=== PATIENT | female | born 1990 | race Caucasian/White ===

== ENCOUNTER 2020-07-05 00:56 | Outpatient (CLI) | payer BC ==
[~2020-07-05] VITALS: Ht 160 cm; Wt 110.4 kg
[2020-07-05 01:15] VITALS: BP 140/85
[2020-07-05] MEDS ORDERED: PRENTAB9 PO (01:20)
[2020-07-05 02:18] VITALS: BP 137/72
--- NOTE | 2020-07-05 02:33 | IPNPDOC ---
Obstetrical Progress Note Date of Service Jul 05, 2020 Subjective 29yo G1 at 20+0 weeks EGA complains of vaginal dampness, and worried about PPROM. No uterine contractions. No vaginal bleeding. No persistent leakage of fluid. +FM. PMH/SH reviewed, no changes. VSS/af REPEAT BP 137/72 Abd: soft,nt,nd Ext: no c/c/e SSE: Cervix visually closed, no pooling/VB/LOF. Neg nitrazine / ferning. SVE: Closed, long, high US,candelaria: cephalic. MVP = 5-6cm. Multiple fluid pockets. A/P: 29yo G1 at 20+0 weeks. No e/o PPROM or advanced dilation. Reassuring maternal and status. -Routine second TM precautions reviewed. Tanesha Morrison DO Objective Vital Signs Date Time Temp Pulse Resp B/P (MAP) Pulse Ox O2 Delivery O2 Flow Rate FiO2 07/05/20 01:15 98.2 106 18 140/85 (103) Assessment Heart Rate (FHR): 155 Tocometer Contractions: No STEPH MORRISON DO Jul 05, 2020 02:33
== END 2020-07-05 02:29 | disposition home or self-care (01) ==
LOC: M LDO 00:56
PROVIDERS: ATTEND Obstetrics & Gynecology
DX: O47.9 False labor, unspecified (principal); Z3A.20 20 weeks gestation of pregnancy
CPT/HCPCS: G0378; G0463

== ENCOUNTER → 2020-08-10 | Outpatient (REF) | payer BC ==
[~2020-08-10] MED LIST: PRENTAB9 PO
== END ==
LOC: M PLALAB 07:48
PROVIDERS: ATTEND Obstetrics & Gynecology
DX: Z34.02 Encounter for supervision of normal first pregnancy, second trimester (principal)

== ENCOUNTER → 2020-08-25 | Outpatient (REF) | payer BC ==
[2020-08-25 13:52] LABS: HEMATOCRIT 34.8 % (36.0-47.0); HEMOGLOBIN 11.3 g/dl (12.0-15.5); MEAN CORPUSCULAR HEMOGLOBIN 29.8 pg (27.0-33.0); MEAN CORPUSCULAR HGB CONC 32.5 g/dl (32.0-36.5); MEAN CORPUSCULAR VOLUME 91.8 fl (80.0-96.0); PLATELET COUNT, AUTOMATED 240 10^3/uL (150-450); RED BLOOD COUNT 3.79 10^6/uL (4.00-5.40); WHITE BLOOD COUNT 9.3 10^3/uL (4.0-10.0)
== END ==
LOC: M PLALAB 10:32
PROVIDERS: ATTEND Obstetrics & Gynecology
DX: Z34.02 Encounter for supervision of normal first pregnancy, second trimester (principal)
CPT/HCPCS: 36415; 85027; 86850; 86900; 86901; J2790

== ENCOUNTER → 2020-10-26 | Outpatient (REF) | payer BC ==
[~2020-10-26] MED LIST changes: +ACET-907 PO
[2020-10-26 14:32] LABS: HEMOGLOBIN 12.1 g/dl (12.0-15.5); MEAN CORPUSCULAR HEMOGLOBIN 29.3 pg (27.0-33.0); MEAN CORPUSCULAR HGB CONC 32.7 g/dl (32.0-36.5); MEAN CORPUSCULAR VOLUME 89.6 fl (80.0-96.0); PLATELET COUNT, AUTOMATED 219 10^3/uL (150-450); RED BLOOD COUNT 4.13 10^6/uL (4.00-5.40); WHITE BLOOD COUNT 11.5 10^3/uL (4.0-10.0)
[2020-10-26 14:56] LABS: ALT/SGPT 18 U/L (12-78); BILIRUBIN,TOTAL 0.2 MG/DL (0.2-1.0); GLOMERULAR FILTRATION RATE > 60.0 (>60); LDH LACTATE DEHYDROGENASE 163 U/L (84-246); TOTAL PROTEIN,RANDOM URINE 19.9 MG/DL (0.0-12.0)
== END ==
LOC: M PLALAB 09:33
PROVIDERS: ATTEND Advanced Practice Midwife
DX: O13.9 Gestational [pregnancy-induced] hypertension without significant proteinuria, unspecified trimester (principal)

== ENCOUNTER 2020-11-01 07:54 | Inpatient (IN) | payer BC ==
[2020-11-01] VITALS (13 sets, daily range): BP systolic 119–149; BP diastolic 63–93
[~2020-11-01] VITALS: Ht 160 cm; Wt 120.8 kg
[~2020-11-01 07:54] MED LIST changes: -ACET-907 PO
[2020-11-01] MEDS ORDERED: ACET-907 PO (08:21)
[2020-11-01] MEDS ORDERED: LACTATED RINGER'S 1000 ML IV STA (08:46)
[2020-11-01] MEDS ORDERED: PENICILLIN G POTASSIUM IV 5 MU in D5W MINI-BAG PLUS 100 ML IV STA (08:46)
[2020-11-01] MEDS ORDERED: CARBOPROST TROMETHAMINE 250 MCG/ML AMP IM PRN (08:50)
[2020-11-01] MEDS ORDERED: TRANEXAMIC ACID INJection 1,000 MG in NS 100 ML IV PRN (08:50)
[2020-11-01] MEDS ORDERED: OXYTOCIN INJ 10 UNITS/ML VIAL (J2590) IM PRN (08:50)
[2020-11-01] MEDS ORDERED: METHYLERGONOVINE MALEATE 0.2 MG/ML VIAL (J2210) IM PRN (08:50)
[2020-11-01] MEDS ORDERED: LIDOCAINE 1% MDV 20ML VIAL INFIL PRN (08:50)
[2020-11-01] MEDS ORDERED: OXYTOCIN DRIP 30 UNITS in IV 1 EA IV PRN ×6 (08:50)
[2020-11-01] MEDS ORDERED: OXYTOCIN INJ 10 UNITS/ML VIAL (J2590) IV PRN (08:50)
[2020-11-01 09:28] LABS: HEMATOCRIT 33.9 % (36.0-47.0); HEMOGLOBIN 11.3 g/dl (12.0-15.5); MEAN CORPUSCULAR HGB CONC 33.3 g/dl (32.0-36.5); MEAN CORPUSCULAR VOLUME 89.9 fl (80.0-96.0); PLATELET COUNT, AUTOMATED 210 10^3/uL (150-450); RED BLOOD COUNT 3.77 10^6/uL (4.00-5.40)
[2020-11-01] MEDS: miSOPROStol 50MCG 1/2 TABLET SL SCH ×3 (09:41→19:08)
[2020-11-01 10:08] LABS: ALT/SGPT 15 U/L (12-78); BILIRUBIN,TOTAL 0.1 MG/DL (0.2-1.0); CREATININE FOR GFR 0.62 MG/DL (0.55-1.30); GLOMERULAR FILTRATION RATE > 60.0 (>60); LDH LACTATE DEHYDROGENASE 185 U/L (84-246); URIC ACID 7.1 MG/DL (2.6-6.0)
[2020-11-01 10:19] LABS: TOTAL PROTEIN,RANDOM URINE 28.2 MG/DL (0.0-12.0)
[2020-11-01] MEDS: PENICILLIN G POTASSIUM IV 2.5 MU in IV 1 EA IV SCH ×3 (14:15→22:18)
[2020-11-01] MEDS: LR 1,000 ML IV SCH (19:58)
[2020-11-01] MEDS ORDERED: ACETAMINOPHEN TAB 650MG DOSE (2X325MG) PO PRN (23:30)
[2020-11-02] VITALS (33 sets, daily range): BP systolic 123–178; BP diastolic 57–120
[2020-11-02] MEDS: miSOPROStol 50MCG 1/2 TABLET SL SCH (00:01)
[2020-11-02] MEDS: PENICILLIN G POTASSIUM IV 2.5 MU in IV 1 EA IV SCH ×6 (02:00→22:00)
[2020-11-02] MEDS: LR 1,000 ML IV SCH ×3 (02:58→21:11)
[2020-11-02 06:37] LABS: HEMATOCRIT 32.9 % (36.0-47.0); HEMOGLOBIN 10.8 g/dl (12.0-15.5); MEAN CORPUSCULAR HEMOGLOBIN 29.7 pg (27.0-33.0); MEAN CORPUSCULAR HGB CONC 32.8 g/dl (32.0-36.5); MEAN CORPUSCULAR VOLUME 90.4 fl (80.0-96.0); PLATELET COUNT, AUTOMATED 193 10^3/uL (150-450); RED BLOOD COUNT 3.64 10^6/uL (4.00-5.40); WHITE BLOOD COUNT 10.4 10^3/uL (4.0-10.0)
[2020-11-02 07:02] LABS: ALT/SGPT 13 U/L (12-78); BILIRUBIN,TOTAL 0.5 MG/DL (0.2-1.0); GLOMERULAR FILTRATION RATE > 60.0 (>60); LDH LACTATE DEHYDROGENASE 149 U/L (84-246); URIC ACID 6.6 MG/DL (2.6-6.0)
--- NOTE | 2020-11-02 08:00 | HPE ---
HISTORY AND PHYSICAL DATE OF ADMISSION: 11/01/2020 HISTORY OF PRESENT ILLNESS: Mary Grace is a 30-year-old female 1 para 0 with an EDC of 11/22/2020, EGA 37 weeks gestation who is being admitted with a diagnosis of preeclampsia for an induction. Patient is a patient of [facility]. She has been receiving care and towards the last third trimester developed gestational hypertension with what appeared to be superimposed preeclampsia. Upon admission, no headache, no blurred vision. No upper quadrant pain. No shortness of breath. Her blood pressure while in Labor and Delivery was well-controlled. Her record was reviewed and unremarkable. labs: Blood type is O negative. Her rubella status is immune. Hepatitis is negative. HIV is negative. GC chlamydia negative. One hour sugar testing was within normal limits. Her GBS is negative. PAST MEDICAL HISTORY: Denies. PAST SURGICAL HISTORY: Denies. SOCIAL HISTORY: She denies any alcohol, drugs or cigarette smoking. REVIEW OF SYSTEMS: Unremarkable. MEDICATIONS: vitamins. ALLERGIES: Reglan. PHYSICAL EXAMINATION: Mildly obese female in no acute distress. Abdomen is soft, nontender, nondistended. Extremities: Without cyanosis, clubbing or edema. Vaginal exam: Fingertip __ cm, -3 station, was done earlier. Tracing reviewed. Category 1 tracing. LABORATORY DATA: Reviewed. Uric acid is 7.1. AST 17, ALT 15. LDH 185. Spot protein and creatinine ratio 0.15, platelets are within normal limits at 210,000. ASSESSMENT: 1. Intrauterine at 37 weeks gestation. 2. Gestational hypertension with superimposed preeclampsia, being admitted for an induction. PLAN: Admit patient to Labor and Delivery. The induction process was discussed earlier with the patient by Dr. Morrison, Cytote induction started. Will place her on the monitor, anticipate delivery. cc: [facility]
[2020-11-02] MEDS ORDERED: OXYTOCIN DRIP 30 UNITS in IV 1 EA IV SCH (09:15)
[2020-11-02] MEDS ORDERED: LR 1,000 ML IV SCH (09:15)
--- NOTE | 2020-11-02 09:17 | IPNPDOC ---
Obstetrical Progress Note Date of Service November 02, 2020 Subjective Reports she is comfortable. Objective Vital Signs Date Time Temp Pulse Resp B/P (MAP) Pulse Ox O2 Delivery O2 Flow Rate FiO2 11/02/20 05:12 98.3 20 11/02/20 03:01 84 138/70 (92) Assessment Heart Rate (FHR): 130 Variability: Moderate Accelerations: Positive Decelerations: None Heart Rate Tracing: Category I Tocometer Contractions: Yes Frequency: irregular Sterile Vaginal Examination Dilation: 1cm Effacement (%): 90% Station: -2 Cervical Consistency: Soft Cervical Position: Anterior Postion/Presentation: Cephalic presentation Assessment and Plan Age: 30 : 1 Term: 0 Pre-term: 0 Abortions: 0 Livin EGA at Admission: 37 Status: Reassuring Group B Streptococcus: Positive Anticipate: Vaginal Delivery Additional Comments Cancino bulb inserted with 60 cc of NS. Patient tolerated well. IV Pitocin to be started per order. IRMA APARICIO CNM November 02, 2020 09:17
[2020-11-02] MEDS ORDERED: FENTANYL 2MCG/ML ROPIVACAINE 0.2% IN 0.9% NACL 100ML IVBAG As Ordered ONE (16:54)
[2020-11-02] MEDS ORDERED: EPIDURAL COMMENT XX SCH (17:25)
[2020-11-02] MEDS ORDERED: ONDANSETRON 4MG/2ML VIAL IV PRN (17:25)
[2020-11-02] MEDS ORDERED: FENTANYL/ROPIVACAINE/NACL BAG 100 ML EPIDURAL SCH (17:25)
[2020-11-02] MEDS ORDERED: ePHEDrine SULFATE 25 MG/5 ML(5MG/ML) SYRINGE IV PRN (17:25)
[2020-11-02] MEDS ORDERED: REFRIGERATOR IV KEYS XX PRN (17:25)
[2020-11-02] MEDS ORDERED: NALOXONE INJ 0.4MG/1ML VIAL (J2310 PER 1MG) IV PRN (17:25)
[2020-11-02] MEDS ORDERED: diphenhydrAMINE 50MG/ML VIAL (J1200) IV PRN (17:25)
[2020-11-02] MEDS ORDERED: EPIDURAL/PCA KEYS XX PRN (17:25)
[2020-11-02] MEDS ORDERED: LACTATED RINGER'S 1000 ML IV PRN (17:25)
--- NOTE | 2020-11-02 17:50 | IPNPDOC ---
Obstetrical Progress Note Date of Service November 02, 2020 Subjective Patient reports she is getting more comfortable with her epidural. She reports spontaneous rupture right before her epidural to clear fluid. Objective Vital Signs Date Time Temp Pulse Resp B/P (MAP) Pulse Ox O2 Delivery O2 Flow Rate FiO2 11/02/20 17:38 103 18 178/120 (139) 11/02/20 12:03 98.3 Vital Signs Label Value Date Time Pulse 92 11/02/20 1734 Blood Pressure Assessment 152/69 (96) 11/02/20 1734 Source Automatic Cuff (NIBP) Pulse 94 11/02/20 1727 Blood Pressure Assessment 146/70 (95) 11/02/20 1727 Source Automatic Cuff (NIBP) Assessment Heart Rate (FHR): 140 Variability: Moderate Accelerations: Positive Decelerations: Early Heart Rate Tracing: Category I Tocometer Contractions: Yes Frequency: regular Sterile Vaginal Examination Dilation: 5 cm (5-6 cm) Effacement (%): 100% Station: 0 Postion/Presentation: Cephalic presentation Assessment and Plan Age: 30 : 1 Livin EGA at Admission: 37 Weeks & Days 37.1 weeks today. Status: Reassuring Group B Streptococcus: Positive Anticipate: Vaginal Delivery Additional Comments IV Pitocin at 10 mu/min. IRMA APARICIO CNM November 02, 2020 17:50
[2020-11-03] VITALS (8 sets, daily range): BP systolic 128–139; BP diastolic 55–86
[2020-11-03] MEDS ORDERED: METHYLERGONOVINE MALEATE 0.2 MG TAB PO PRN (00:20)
[2020-11-03] MEDS ORDERED: DIBUCAINE 1% OINTMENT 30GM TOP PRN (00:20)
[2020-11-03] MEDS ORDERED: ACETAMINOPHEN TAB 650MG DOSE (2X325MG) PO PRN (00:20)
[2020-11-03] MEDS ORDERED: ACETAMINOPHEN 500 MG TAB PO PRN (00:20)
[2020-11-03] MEDS ORDERED: RHOGAM 300 MCG (1500 IU) INJ (J2790) IM SCH (00:20)
[2020-11-03] MEDS ORDERED: ANUSOL HC CREAM 30GM TOP PRN (00:20)
[2020-11-03] MEDS ORDERED: DOCUSATE SODIUM 100MG CAPSULE PO PRN (00:20)
[2020-11-03] MEDS ORDERED: MEASLES,MUMPS,RUBELLA VACCINE INJ (MMR-II) (90707) SC SCH (00:20)
--- NOTE | 2020-11-03 00:27 | DNPDOC ---
[facility] Delivery Note Delivery Note DATE OF DELIVERY: 11/02/20 at 2328 PREDELIVERY DIAGNOSIS: 37-1/7 weeks' gestation and induction of labor. POST DELIVERY DIAGNOSIS: Delivered. PROCEDURE: Spontaneous vaginal delivery. [place] ANALYST: Irma Francisco CNM, MICAELA ANESTHESIA: epidural. ESTIMATED BLOOD LOSS: 300 mL. FINDINGS: 6 pounds 5 ounce; 2860 grams; male , Score 8/9, preeclampsia, left compound hand. DELIVERY SUMMARY: Mary Grace is a 30-year-old female who is now a who presented to L&D for induction of labor for preeclampsia. she received Cytotec x4, a turner bulb and IV Pitocin for induction of labor. She requested an epidural for pain management. The patient progressed to fully dilated at 2250 and pushed to a living male in the GARRET position with restitution to ROT. A left compound hand was noted. The anterior shoulder delivered with ease and the corpus immediately followed. The baby was placed on the maternal abdomen active and crying with stimulation. The cord was clamped x2 after 2 minutes and cut by the FOB. A 3-vessel cord was noted. The placenta delivered spontaneously and intact at 2333. Uterine hemostasis was achieved via rapid infusion of IV Pitocin and fundal massage. The vagina, cervix, and perineum was inspected and found to have a small 2nd degree perineal laceration that was repaired with a 3. [address]-1. Mom plans to breastfeed. Both mom and baby are in stable condition. All counts of instruments and sponges are correct. IRMA FRANCISCO CNM November 03, 2020 00:27
[2020-11-03] MEDS: IBUPROFEN 800 MG TAB PO PRN ×2 (01:12→22:23)
--- NOTE | 2020-11-03 09:25 | IPNPDOC ---
Progress Note Date of Service: November 03, 2020 Day#: 1 Progress Note SUBJECT: Mary Grace is a 30-year-old female who is now a who presented to L&D for an induction of labor at 37 weeks for preeclampsia. She had a vaginal delivery with the use of an epidural for pain management. She reports she has been ambulating, voiding without issues and eating a regular diet. She denies any preeclamptic signs currently and reports her swelling in her feet and legs have gotten better. Reports she is without complications. OBJECTIVE: VITAL SIGNS: Within normal limits, afebrile. Alert and oriented times three. Breath sounds clear to auscultation. Abdomen: Fundus firm at U-2. Soft, NTTP. Moderate lochia. Extremities: 1-2+ pitting edema in feet, ankles and legs ASSESSMENT: Day 1 , preeclampsia PLAN: 1. Continue to monitor for preeclamptic symptoms. 2. Continue nursing care. 3. Consider discharge tomorrow. VS, I&O, 24H, Fishbone Vital Signs/I&O Vital Signs Date Time Temp Pulse Resp B/P (MAP) Pulse Ox O2 Delivery O2 Flow Rate FiO2 11/03/20 06:00 98.1 80 18 132/64 (86) 95 Room Air I&O- Last 24 Hours up to 6 AM 11/03/20 06:00 Intake Total 2477 ml Output Total 1225 ml Balance 1252 ml IRMA APARICIO CNM November 03, 2020 09:24
[2020-11-03] MEDS: PRENATAL VITAMINS CHEWABLE TABLET PO SCH (09:32)
[2020-11-03] MEDS: IBUPROFEN 600MG TAB PO PRN ×2 (09:33→15:03)
[2020-11-04 06:00] VITALS: BP 133/84
[2020-11-04] MEDS: IBUPROFEN 600MG TAB PO PRN (09:10)
[2020-11-04] MEDS: PRENATAL VITAMINS CHEWABLE TABLET PO SCH (09:10)
--- NOTE | 2020-11-04 10:07 | IPNPDOC ---
Progress Note Date of Service: November 04, 2020 Day#: 2 Progress Note SUBJECT: Mary Grace is a 30-year-old female who is now a who presented to L&D for an induction of labor at 37 weeks for preeclampsia. She had a vaginal delivery with the use of an epidural for pain management. She reports she has been ambulating, voiding without issues and eating a regular diet. She denies any preeclamptic signs currently and reports her swelling in her feet and legs have gotten better. Reports she is without complications. OBJECTIVE: VITAL SIGNS: Within normal limits, afebrile. Alert and oriented times three. Breath sounds clear to auscultation. Abdomen: Fundus firm at U-2. Soft, NTTP. Moderate lochia. Extremities: 1-2+ pitting edema in feet, ankles and legs ASSESSMENT: Day 2 , preeclampsia PLAN: 1. Discharge to home today 2. Routine care VS, I&O, 24H, Fishbone Vital Signs/I&O Vital Signs Date Time Temp Pulse Resp B/P (MAP) Pulse Ox O2 Delivery O2 Flow Rate FiO2 11/04/20 06:00 99.2 99 18 133/84 (100) 98 Room Air STEPH ARAGON DO November 04, 2020 10:07
== END 2020-11-04 14:40 | disposition home or self-care (01) | DRG 560 ==
LOC: M LDI 07:54 → M OBS 11-03 02:27
PROVIDERS: ADMIT Obstetrics & Gynecology; ATTEND Obstetrics & Gynecology
PROC: 10E0XZZ Delivery of Products of Conception, External Approach (ICD-10-PCS; principal; 2020-11-02)
PROC: 3E0P7GC Introduction of Other Therapeutic Substance into Female Reproductive, Via Natural or Artificial Opening (ICD-10-PCS; 2020-11-02)
PROC: 0KQM0ZZ Repair Perineum Muscle, Open Approach (ICD-10-PCS; 2020-11-02)
DX: O14.04 Mild to moderate pre-eclampsia, complicating childbirth (principal); Z3A.37 37 weeks gestation of pregnancy; Z37.0 Single live birth; O99.214 Obesity complicating childbirth; E66.9 Obesity, unspecified; O64.5XX0 Obstructed labor due to compound presentation, not applicable or unspecified; O70.1 Second degree perineal laceration during delivery

== ENCOUNTER → 2021-02-12 | Outpatient (REF) | payer BC ==
[~2021-02-12] MED LIST changes: +ACET-907 PO
== END ==
LOC: M SFHCWAGY 18:16
PROVIDERS: ATTEND Advanced Practice Midwife
DX: Z12.4 Encounter for screening for malignant neoplasm of cervix (principal); N87.0 Mild cervical dysplasia
CPT/HCPCS: 87624; G0123

== ENCOUNTER → 2022-02-24 | Outpatient (REF) | payer OTHER ==
[2022-02-24 15:03] LABS: APPEARANCE, URINE MANUAL HAZY (CLEAR); COLOR, URINE MANUAL YELLOW (YELLOW)
[2022-02-24 15:05] LABS: BILIRUBIN, URINE MANUAL NEGATIVE (NEGATIVE); GLUCOSE, URINE (UA) MANUAL NEGATIVE (NEGATIVE); KETONE, URINE MANUAL NEGATIVE (NEGATIVE); NITRITE, URINE MANUAL NEGATIVE (NEGATIVE); PROTEIN, URINE MANUAL TRACE mg/dL (NEGATIVE); SPECIFIC GRAVITY,URINE MANUAL 1.015 (1.002-1.035); UROBILINOGEN, URINE MANUAL NORMAL (NORMAL)
[2022-02-24 15:06] LABS: BLOOD URINE MANUAL POSITIVE (NEGATIVE); LEUKOCYTE ESTERASE, URINE MAN POSITIVE (NEGATIVE)
[2022-02-24 15:34] LABS: BACTERIA, URINE SMALL AMOUNT; RBC, URINE 0-1 /hpf (0-3); SQUAMOUS EPITHELIAL CELL URINE SMALL AMOUNT /hpf (SMALL AMT)
[2022-02-24 15:35] LABS: HYALINE CAST, URINE NONE SEEN /lpf (0-1); YEAST, URINE MOD AMOUNT
== END ==
LOC: M PLALAB 08:38
PROVIDERS: ATTEND Obstetrics & Gynecology
DX: N76.0 Acute vaginitis (principal)

== ENCOUNTER → 2022-04-01 | Outpatient (CLI) | payer OTHER | LOC: M PLALAB 09:26 | PROVIDERS: ATTEND Advanced Practice Midwife | DX: Z34.82 Encounter for supervision of other normal pregnancy, second trimester (principal) | CPT/HCPCS: 36415; 86850; 86900; 86901; J2790 ==

== ENCOUNTER → 2022-06-01 | Outpatient (REF) | payer OTHER | LOC: M SFHCWAGY 10:12 | PROVIDERS: ATTEND Obstetrics & Gynecology | DX: Z34.93 Encounter for supervision of normal pregnancy, unspecified, third trimester (principal) ==

== ENCOUNTER 2022-06-12 14:07 | Inpatient (IN) | payer OTHER ==
[2022-06-12] VITALS (10 sets, daily range): BP systolic 119–140; BP diastolic 59–88
[~2022-06-12] VITALS: Ht 160 cm; Wt 116.1 kg
[2022-06-12] MEDS ORDERED: HOME MED LIST COMPLETE! XX SCH (14:35)
[2022-06-12] MEDS ORDERED: OXYTOCIN DRIP 30 UNITS in IV 1 EA IV PRN ×4 (15:00)
[2022-06-12] MEDS ORDERED: LIDOCAINE 1% MDV 20ML VIAL INFIL PRN (15:00)
[2022-06-12] MEDS ORDERED: SLF 3 ML SYR IV PRN (15:50)
[2022-06-12 16:36] LABS: HEMATOCRIT 32.2 % (36.0-47.0); HEMOGLOBIN 10.7 g/dl (12.0-15.5); MEAN CORPUSCULAR HEMOGLOBIN 29.1 pg (27.0-33.0); MEAN CORPUSCULAR HGB CONC 33.2 g/dl (32.0-36.5); MEAN CORPUSCULAR VOLUME 87.5 fl (80.0-96.0); PLATELET COUNT, AUTOMATED 223 10^3/uL (150-450); RED BLOOD COUNT 3.68 10^6/uL (4.00-5.40); WHITE BLOOD COUNT 7.9 10^3/uL (4.0-10.0)
[2022-06-12] MEDS ORDERED: ACET325C5 PO (16:37)
[2022-06-12] MEDS ORDERED: CARBOPROST TROMETHAMINE 250 MCG/ML AMP IM PRN (17:15)
[2022-06-12] MEDS ORDERED: TRANEXAMIC ACID INJection 1,000 MG in NS 100 ML IV PRN (17:15)
[2022-06-12] MEDS ORDERED: PENICILLIN G POTASSIUM 5 MU IV 5 MU in D5W MINI-BAG PLUS 100 ML IV STA (17:23)
[2022-06-12] MEDS: miSOPROStol 50MCG 1/2 TABLET PO SCH ×2 (17:54→22:03)
[2022-06-12] MEDS: LR 1,000 ML IV SCH (17:54)
[2022-06-12] MEDS ORDERED: SLF 3 ML SYR IV SCH (22:00)
[2022-06-12] MEDS: PEN G POT 3,000,000 UNIT/50 ML 3,000,000 UNIT in IV 1 EA IV SCH (22:03)
[2022-06-13] VITALS (46 sets, daily range): BP systolic 98–152; BP diastolic 51–93
[2022-06-13] MEDS ORDERED: OXYTOCIN DRIP 30 UNITS in IV 1 EA IV SCH (02:10)
[2022-06-13] MEDS: PEN G POT 3,000,000 UNIT/50 ML 3,000,000 UNIT in IV 1 EA IV SCH ×4 (02:12→13:39)
[2022-06-13] MEDS: LR 1,000 ML IV SCH ×3 (03:49→14:40)
[2022-06-13] MEDS ORDERED: ePHEDrine SULFATE 25 MG/5 ML(5MG/ML) SYRINGE IVP PRN (07:45)
[2022-06-13] MEDS ORDERED: EPIDURAL/PCA KEYS XX PRN (07:45)
[2022-06-13] MEDS ORDERED: ONDANSETRON 4MG 2ML VIAL IV PRN (07:45)
[2022-06-13] MEDS ORDERED: diphenhydrAMINE 50MG/ML VIAL IV PRN (07:45)
[2022-06-13] MEDS ORDERED: FENTANYL/ROPIVACAINE/NACL BAG 100 ML EPIDURAL SCH (07:45)
[2022-06-13] MEDS ORDERED: NALOXONE INJ 0.4MG/1ML VIAL IV PRN (07:45)
[2022-06-13] MEDS ORDERED: LR 500 ML IV PRN (07:45)
[2022-06-13] MEDS ORDERED: IBUPROFEN 600MG TAB PO PRN (17:20)
[2022-06-13] MEDS ORDERED: MOM 30ML SUSPENSION UDC PO PRN (17:20)
[2022-06-13] MEDS ORDERED: ACETAMINOPHEN TAB 650MG DOSE (2X325MG) PO PRN (17:20)
[2022-06-13] MEDS ORDERED: ACETAMINOPHEN 500 MG TAB PO PRN (17:20)
[2022-06-13] MEDS ORDERED: ANUSOL HC CREAM 30GM TOP PRN (17:20)
[2022-06-13] MEDS ORDERED: RHOGAM 300 MCG (1500 IU) INJ (J2790) IM SCH (17:20)
[2022-06-13] MEDS ORDERED: DOCUSATE SODIUM 100MG CAPSULE PO PRN (17:20)
[2022-06-13] MEDS ORDERED: SLF 3 ML SYR IV PRN (18:15)
[2022-06-13] MEDS: IBUPROFEN 800 MG TAB PO PRN (19:22)
[2022-06-13] MEDS: DIBUCAINE 1% OINTMENT 30GM TOP PRN (19:22)
[2022-06-13] MEDS: SLF 3 ML SYR IV SCH (19:23)
[2022-06-14] MEDS: IBUPROFEN 800 MG TAB PO PRN ×3 (05:57→22:43)
[2022-06-14] MEDS: SLF 3 ML SYR IV SCH ×2 (05:58→14:00)
[2022-06-14 06:00] VITALS: BP 122/80
[2022-06-14] MEDS: PRENATAL VITAMINS CHEWABLE TABLET PO SCH (07:53)
[2022-06-14 10:00] VITALS: BP 136/80
[2022-06-14 14:00] VITALS: BP 139/81
[2022-06-14] MEDS: DIBUCAINE 1% OINTMENT 30GM TOP PRN (15:36)
[2022-06-14 17:58] VITALS: BP 134/57
[2022-06-15 06:00] VITALS: BP 130/78
[2022-06-15] MEDS ORDERED: MEASLES,MUMPS,RUBELLA VACCINE INJ (MMR-II) (90707) SC.IMMUN ONE (09:00)
[2022-06-15] MEDS: PRENATAL VITAMINS CHEWABLE TABLET PO SCH (09:59)
== END 2022-06-15 12:40 | disposition home or self-care (01) | DRG 807 ==
LOC: M LDI 14:07 → M OBS 06-13 18:55
PROVIDERS: ADMIT Obstetrics & Gynecology; ATTEND Obstetrics & Gynecology
PROC: 3E033VJ Introduction of Other Hormone into Peripheral Vein, Percutaneous Approach (ICD-10-PCS; 2022-06-12)
PROC: 10907ZC Drainage of Amniotic Fluid, Therapeutic from Products of Conception, Via Natural or Artificial Opening (ICD-10-PCS; 2022-06-12)
PROC: 10E0XZZ Delivery of Products of Conception, External Approach (ICD-10-PCS; principal; 2022-06-13)
DX: O13.4 Gestational [pregnancy-induced] hypertension without significant proteinuria, complicating childbirth (principal); Z37.0 Single live birth; Z3A.37 37 weeks gestation of pregnancy; Z88.8 Allergy status to other drugs, medicaments and biological substances

== ENCOUNTER → 2023-07-14 | Outpatient (REF) | payer OTHER ==
[~2023-07-14] MED LIST changes: +ACET325C5 PO
== END ==
LOC: M PLALAB 09:48
PROVIDERS: ATTEND Advanced Practice Midwife
DX: Z12.4 Encounter for screening for malignant neoplasm of cervix (principal)
CPT/HCPCS: 87624; G0123